=== PATIENT | female | born 1995 | race Caucasian/White ===

== ENCOUNTER 2020-11-26 12:16 | Emergency (ER) | payer BC ==
[2020-11-26 12:28] VITALS: BP 116/78; PULSE 88; TEMP 98.5; BMI 21.2
[2020-11-26] MEDS ORDERED: SODIUM CHLORIDE 0.9% 500 ML INFUS.BAG IV ONE (13:00)
[2020-11-26] MEDS ORDERED: DICYCLOMINE HCL 20 MG TABLET PO ONE (13:00)
[2020-11-26] MEDS ORDERED: ACETAMINOPHEN 1000 MG/100 ML VIAL (NON FORMULARY) IVPB ONE (13:00)
[2020-11-26 13:35] LABS: BASO % 1.1 % (0-2.0); EOS % 1.3 % (0-4.5); HEMATOCRIT 39.7 % (32.4-45.2); HEMOGLOBIN 13.6 GM/dL (10.7-15.3); MCH 32.1 pg (25.7-33.7); MCHC 34.3 g/dl (32.0-36.0); MEAN CELL VOLUME 93.4 fl (80-96); MEAN PLT VOLUME 9.6 fl (7.5-11.1); NEUT % 45.6 % (42.8-82.8); PLATELET COUNT 213 K/MM3 (134-434); RBC 4.25 M/mm3 (3.60-5.2); RDW 12.7 % (11.6-15.6); WHITE BLOOD COUNT 5.4 K/mm3 (4.0-10.0)
[2020-11-26 13:38] LABS: URINE APPEARANCE CLEAR; URINE BILIRUBIN NEGATIVE (NEGATIVE); URINE COLOR YELLOW; URINE GLUCOSE (UA) NEGATIVE (NEGATIVE); URINE KETONE NEGATIVE (NEGATIVE); URINE LEUK ESTERASE NEGATIVE (NEGATIVE); URINE NITRITE NEGATIVE (NEGATIVE); URINE PROTEIN NEGATIVE (NEGATIVE); URINE UROBILINOGEN 0.2 mg/dL (0.2-1.0)
[2020-11-26] MEDS ORDERED: ACETAMINOPHEN INJECTION 100 ML IVPB ONE (13:54)
[2020-11-26] MEDS ORDERED: DICYCLOMINE HCL 10 MG CAPSULE ONE (13:54)
[2020-11-26 13:56] LABS: CHLORIDE 107 mmol/L (98-107); SODIUM 139 mmol/L (136-145)
[2020-11-26 13:58] LABS: CALCIUM 9.4 mg/dL (8.5-10.1)
[2020-11-26 13:59] LABS: ALBUMIN 4.3 g/dl (3.4-5.0); ANION GAP 6 MMOL/L (8-16); CO2 26 mmol/L (21-32); LIPASE 93 U/L (73-393)
[2020-11-26 14:02] LABS: CREATININE 0.6 mg/dL (0.55-1.3); SGOT/AST 19 U/L (15-37); SGPT/ALT 28 U/L (13-61)
[2020-11-26 14:03] LABS: BILIRUBIN,TOTAL 0.9 mg/dL (0.2-1); TOT PROT 7.6 g/dl (6.4-8.2)
[2020-11-26 14:05] LABS: ALK PHOS 60 U/L (45-117)
[2020-11-26 14:08] LABS: BLOOD UREA NITROGEN 7.2 mg/dL (7-18); GLUCOSE,RANDOM 91 mg/dL (74-106)
== END 2020-11-26 17:17 | disposition home or self-care (01) ==
LOC: JER 12:16
PROC: 3E0333Z Introduction of Anti-inflammatory into Peripheral Vein, Percutaneous Approach (ICD-10-PCS; principal; 2020-11-26)
DX: R10.31 Right lower quadrant pain (principal)
CPT/HCPCS: 36415; 74177-TC; 76830-TC; 80053; 81003; 83690; 84702; 85025; 87086; 99285-25; J0131; Q9967